=== PATIENT | male | born 1970 | race Caucasian/White ===

== ENCOUNTER 2019-10-17 13:04 | Emergency (ER) | payer OTHER, SELFPAY ==
[2019-10-17 13:15] VITALS: BP 149/78; PULSE 106; RESP 20; TEMP 37; O2SAT 98
--- NOTE | 2019-10-17 13:24 | ED.URI ---
HPI - URI/Sore Throat General Chief Complaint: Upper Respiratory Infection Stated Complaint: fever and aches Time Seen by Provider: 10/17/19 13:24 Source: patient and RN notes reviewed History of Present Illness HPI Narrative: Patient is a 49-year-old male that presents the urgent care with complaints of fever, chills, body aches, sweats. Patient states that started on Thursday and he has been using Tylenol Cold and flu for fever relief. Patient states he wanted to make sure he did not have influenza because his son recently had a bone marrow biopsy. No other acute complaints. No acute distress noted. Patient read the plan of care. Related Data Home Medications Medication Instructions Recorded Confirmed aripiprazole 400 mg intramuscular 400 mg IM .[id number] each 09/28/19 09/28/19 suspension,extended release Allergies Allergy/AdvReac Type Severity Reaction Status Date / Time No Known Allergies Allergy Unknown Verified 10/17/19 13:22 Review of Systems Review of Systems: Narrative: CONSTITUTIONAL: Reports a fever, chills, sweats, fatigue EYES: Denies visual changes, redness, or discharge. ENT: Denies rhinorrhea, congestion, sore throat, or otalgia. CARDIOVASCULAR: Denies chest pain, palpitations, or edema. RESPIRATORY: Denies cough or dyspnea. GASTROINTESTINAL: Denies abdominal pain, nausea, vomiting, or diarrhea. GENITOURINARY: Denies dysuria or hematuria. SKIN: Denies rash or itching. MUSCULOSKELETAL: Denies back pain, joint pain; reports of body aches NEUROLOGIC: Denies headache, numbness, or weakness. All other systems reviewed are negative, except as documented in HPI. PMFSH Social History Social History Smoking status: Heavy tobacco smoker Tobacco type: cigarettes Alcohol intake: current Substance use: never Substance use type: does not use Comments At the time of my signature, I reviewed and agree with the nursing past medical, surgical, social, and family history. There is no relevant family history pertinent to the patient complaint. Exam Narrative: Exam Narrative: GENERAL: This is a well-nourished, well-developed patient, appears slightly fatigued HEAD: normocephalic, atraumatic. EYES: PERRL. Sclera clear/white. Vision is grossly intact. EARS: External ears normal, auditory canals clear and without drainage, TMs normal without perforation. Hearing grossly intact. NOSE: External nose normal with no obvious nasal discharge, nares without redness, no rhinorrhea. THROAT: Mucous membranes moist, mild erythema noted posterior oropharynx. Moderate postnasal drainage NECK: Neck supple, non-tender without lymphadenopathy, masses or thyromegaly. CARDIOVASCULAR: Regular rate and rhythm without murmurs, gallops, or rubs. RESPIRATORY: Clear to auscultation. Breath sounds equal bilaterally. No wheezes, rales, or rhonchi. SKIN: warm, intact with no suspicious lesions or rash, good texture and turgor. NEURO: awake, alert, and oriented to person, place and time. There were no obvious focal neurologic abnormalities. EXTREMITIES: No clubbing, cyanosis, or edema. Course Vital Signs Vital signs: Vital Signs Temperature 98.6 F 10/17/19 13:15 Pulse Rate 106 H 10/17/19 13:15 Respiratory Rate 20 10/17/19 13:15 Blood Pressure 149/78 H 10/17/19 13:15 Pulse Oximetry 98 10/17/19 13:15 Temperature 98.6 F 10/17/19 13:15 Pulse Rate 106 H 10/17/19 13:15 Respiratory Rate 20 10/17/19 13:15 Blood Pressure 149/78 H 10/17/19 13:15 Pulse Oximetry 98 10/17/19 13:15 Reviewed?patient is informed that they may have pre-hypertension or hypertension based on a blood pressure reading in the department. I recommend the patient call the primary care provider listed on their discharge instructions or a physician of their choice this week to arrange follow-up for further evaluation of possible pre-hypertension or hypertension. MDM - URI/Sore Throat M
== END 2019-10-17 13:50 | disposition home or self-care (01) ==
PROVIDERS: Emergency Provider Nurse Practitioner Family
DX: B34.9 Viral infection, unspecified (principal); F17.210 Nicotine dependence, cigarettes, uncomplicated; Z85.47 Personal history of malignant neoplasm of testis
CPT/HCPCS: 87804; 99212; G0463

== ENCOUNTER 2020-11-07 04:12 | Emergency (ER) | payer OTHER, SELFPAY ==
[2020-11-07 04:17] VITALS: BP 144/83; PULSE 98; RESP 20; TEMP 36.8; O2SAT 98
--- NOTE | 2020-11-07 04:42 | ED.GENADULT ---
HPI - General Adult General Chief complaint: Extremity Problem,Nontraumatic Stated complaint: Severe Case of Athlete's feet Time Seen by Provider: 11/07/20 04:42 History of Present Illness HPI narrative: Patient is a 50-year-old gentleman who presents to the emergency department with chief complaint of athlete's foot. Patient reports he is on several days redness and cracking of bilateral feet consistent with athlete's foot he is reports he is attempted [id number] medications without success. Related Data Home Medications Medication Instructions Recorded Confirmed aripiprazole 400 mg intramuscular 400 mg IM .[id number] each 09/28/19 10/17/19 suspension,extended release Allergies Allergy/AdvReac Type Severity Reaction Status Date / Time No Known Allergies Allergy Unknown Verified 11/07/20 04:20 Review of Systems Review of Systems: Narrative: A 10 system review of systems was completed on the patient and is negative except for what is stated in the HPI. Nursing and ancillary documentation was reviewed. COUNT INCLUDES THE [facility] Past Medical History Medical History (Updated 11/07/20 @ 04:58 by Cornelius Adler MD) Broken ribs around 1999 Broken thumb around 2001 - left thumb Testicular cancer around 2009 Surgical History Surgical History History of thumb surgery around 2001 - Left thumb Family History Family History Mother Family history of lung cancer, Onset Age: 67 Other Cerebrovascular accident Family history of alcoholism Family history of mental disorder Social History Social History Smoking status: Heavy tobacco smoker Tobacco type: cigarettes Alcohol intake: current Substance use: never Substance use type: does not use Gender identity (if verbalized by the patient): Male Exam Narrative: Exam Narrative: GENERAL: Well-appearing, well-nourished, and in no acute distress. HEAD: Normocephalic, atraumatic. EYES: PERRLA and EOMI. ENT: Nares clear, no rhinorrhea or epistaxis. Mucous membranes moist. NECK: Supple. CHEST: Clear to auscultation. No respiratory distress. HEART: Regular rate and rhythm. No murmur heard. Normal peripheral pulses. ABDOMEN: Soft, nontender, nondistended, normal active bowel sounds. EXTREMITIES: Normal range of motion. No edema. SKIN: Warm, dry, rash consistent with athlete's foot on bilateral feet. NEURO: No focal deficits. Alert and oriented x3. PSYCH: Normal mood and affect. Course Vital Signs Vital signs: Vital Signs Temperature 36.8 C 11/07/20 04:17 Pulse Rate 98 11/07/20 04:17 Respiratory Rate 20 11/07/20 04:17 Blood Pressure 144/83 H 11/07/20 04:17 Pulse Oximetry 98 11/07/20 04:17 Temperature 36.8 C 11/07/20 04:17 Pulse Rate 98 11/07/20 04:17 Respiratory Rate 20 11/07/20 04:17 Blood Pressure 144/83 H 11/07/20 04:17 Pulse Oximetry 98 11/07/20 04:17 Medical Decision Making Vital Signs Vital Signs: Vital Signs Temperature 36.8 C 11/07/20 04:17 Pulse Rate 98 11/07/20 04:17 Respiratory Rate 20 11/07/20 04:17 Blood Pressure 144/83 H 11/07/20 04:17 Pulse Oximetry 98 11/07/20 04:17 Temperature 36.8 C 11/07/20 04:17 Pulse Rate 98 11/07/20 04:17 Respiratory Rate 20 11/07/20 04:17 Blood Pressure 144/83 H 11/07/20 04:17 Pulse Oximetry 98 11/07/20 04:17 Lab Data Labs: Lab Results 11/07/20 Range/Units 04:41 POC Capillary Glucose 112 H (65-105) mg/dl Discharge Plan Discharge Clinical Impression: Tinea pedis Qualifiers: Laterality: bilateral Qualified Code(s): B35.3 - Tinea pedis Patient Disposition: Home, Self-Care Condition: Stable Instructions: Antibiotic Form, Athlete's Foot (ED), Skin Yeast Infection (ED) Prescriptions: New fluconazole 150
[2020-11-07 04:43] LABS: Glucose Point of Care 112 (65-105)
[2020-11-07 05:22] VITALS: BP 141/79; PULSE 89; RESP 20; O2SAT 97
== END 2020-11-07 05:24 | disposition home or self-care (01) ==
PROVIDERS: Emergency Provider Emergency Medicine; PCP Family Medicine
DX: B35.3 Tinea pedis (principal)
CPT/HCPCS: 82948; 99283

== ENCOUNTER 2021-04-23 10:08 | Emergency (ER) | payer BC, SELFPAY ==
[2021-04-23 10:15] VITALS: BP 123/80; PULSE 97; RESP 16; TEMP 36.6; O2SAT 98
--- NOTE | 2021-04-23 10:15 | PC.NURSE ---
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 HE THINKS HE HAS GIVEN IT TO HIS , SON, DAUGHTER AND GRAND BABY. HE IS EMPHATIC THAT HE HAS HIV EVEN THOUGH HE HAS NOT BEEN UNFAITHFUL OR USED ANY ILLICIT IV DRUGS.
[2021-04-23 11:23] LABS: Basophils Percent Auto 0.8 % (0.2-1.2); Eosinophils Absolute Auto 0.3 K/mm3 (0-0.3); Eosinophils Percent Auto 5.4 % (0-4.4); Hemoglobin 15.4 g/dL (14.0-18.0); Immature Granulocyte Absolute 0.02 K/mm3 (0.00-0.031); Immature Granulocyte Percent A 0.4 % (0-0.5); Lymphocytes Absolute Auto 1.17 K/mm3 (0.9-3.2); Lymphocytes Percent Auto 23.3 % (18.3-44.2); Mean Corpuscular HGB Conc 34.2 g/dl (32-36); Mean Corpuscular Hemoglobin 33.2 pg (26-34); Mean Platelet Volume 9.3 fl (7.4-10.4); Monocytes Absolute Auto 0.5 K/mm3 (0.1-0.6); Monocytes Percent Auto 10.7 % (2.6-8.5); Neutrophils Percent Auto 59.4 % (45.5-73.1); Platelet Count Result 202 k/mm3 (150-375); Red Blood Count 4.64 M/mm3 (4.6-6.20)
[2021-04-23 11:25] LABS: Add Urine Microscopic? NO; Appearance Urine Clear (Clear); Bilirubin Urine Negative (Negative); Blood Urine Negative (Negative); Color Urine Yellow (Yellow); Glucose Urine UA Negative (Negative); Ketones Urine Negative (Negative); Leukocyte Esterase Ur Negative LEU/UL (Negative); Nitrate Urine Negative (Negative); Protein Urine Negative (Negative); Specific Grav Ur 1.011 (1.001-1.035); Urobilinogen Urine Negative mg/dL (<2.0)
[2021-04-23 11:52] LABS: Amphetamine Screen Urine Negative (Negative); Barbiturate Screen Urine Negative (Negative); Benzodiazepines Screen Urine Negative (Negative); Cannabinoid Screen Urine Negative (Negative); Cocaine Screen Urine Negative (Negative); Methadone Screen Urine Negative (Negative); Opiate Screen Urine Negative (Negative); Phencyclidine Screen Urine Negative (Negative)
[2021-04-23 11:56] LABS: Ethanol < 10 mg/dL (<10)
[2021-04-23 11:56] LABS: Alanine Aminotransferase 31 U/L (4-50); Albumin Level 4.5 g/dL (3.5-5.1); Alkaline Phosphatase 93 U/L (38-126); Anion Gap 8 mmol/L (8-16); Aspartate Amino Transferase 29 U/L (17-59); Bilirubin,Total 0.5 mg/dL (0.2-1.3); Blood Urea Nitrogen 12 mg/dL (9-20); Calcium 10.1 mg/dL (8.4-10.2); Carbon Dioxide 25 mmol/L (22-30); Chloride 105 mmol/L (98-107); Estimated CRCL calculation 88 ml/min; Estimated Glomerular Filt Rate > 60; Glucose 116 mg/dL (65-110); Potassium 3.9 mmol/L (3.4-5.0); Sodium 138 mmol/L (137-145)
[2021-04-23 13:13] LABS: HIV 1/2 Ab P24 Ag Result Negative (Negative)
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
[2021-04-23 15:56] VITALS: BP 104/70; PULSE 116; RESP 19; O2SAT 99
[2021-04-23 18:53] LABS: EDCOVIDSCREEN Negative (Negative)
--- NOTE | 2021-04-23 18:59 | PC.NURSE ---
labs and covid swab results faxed to [facility] at this time
[2021-04-23 20:47] VITALS: BP 128/87; PULSE 91; RESP 16; O2SAT 98
--- NOTE | 2021-04-23 21:03 | PC.NURSE ---
report given to Aruna HOLLY at [facility].
--- NOTE | 2021-04-23 21:09 | PC.NURSE ---
made contact with [facility] and [facility] to transfer pt to [facility]. both companies declined. contacted [facility] to transfer pt eta [phone]
--- NOTE | 2021-04-23 23:32 | PC.NURSE ---
[facility] has arrived and is aware that pt is going to [place]
[2021-04-23 23:37] VITALS: PULSE 96; RESP 18; O2SAT 94
== END 2021-04-23 23:40 ==
PROVIDERS: Emergency Medicine; Emergency Provider Emergency Medicine
DX: F23 Brief psychotic disorder (principal); R45.851 Suicidal ideations; F17.210 Nicotine dependence, cigarettes, uncomplicated; Z20.822 Contact with and (suspected) exposure to COVID-19; Z85.47 Personal history of malignant neoplasm of testis
CPT/HCPCS: 36415; 80053; 80307; 81003; 84443; 85025; 86703; 87426; 99285; C9803; G0432